=== PATIENT | female | born 1955 | race African-American/Black ===

== ENCOUNTER → 2016-07-04 | Outpatient (CLI) | payer OTHER ==
[~2016-07-04] MED LIST: COZAAR25 MG PO; FENTANYL1 EAC3 TDERMAL; GABAPENTIN100 MG ORAL; GLUCOPHAGE850 MG PO; SOMA350 MG PO; ZOLPIDEM TARTRA10 MG ORAL
--- NOTE | 2016-07-04 14:35 | Diagnostic Imaging Report ---
Indications: Back pain, right leg numbness, history of degenerative disc disease Technique: Spiral acquisitions obtained through the lumbar spine. Multiplanar reconstructions were generated. No IV contrast utilized. Total dose length product 1064 mGycm. CTDIvol(s) 32 mGy Comparison: None Findings: There is slight anterior offset of L4 on L5, presumably due to facet degeneration. The bony alignment is otherwise normal. Vertebral body heights are preserved. There is degenerative disc narrowing at L5-S1, and minimally at L4-5. The remaining disc spaces are preserved. There is bilateral sacroiliac degeneration. No acute fractures. No dislocations At T11-12, T12-L1, L1-L2, no significant disc bulge or protrusion, spinal stenosis, or neural foraminal stenosis. At L2-3, there is generalized mild circumferential annular bulge. This, in combination with ligamentum flavum hypertrophy, results in mild narrowing of the spinal canal. The neural foramina are preserved. There is mild facet degeneration on the left. At L3-4, there is generalized circumferential annular bulge. This, in combination with ligamentum flavum hypertrophy results in mild narrowing of the spinal canal at this level. The neural foramina are preserved. There is bilateral facet degeneration. At L4-5, circumferential annular bulge and the alignment abnormality as well as ligamentum flavum hypertrophy results in mild narrowing of the spinal canal. There is vacuum formation of the disc. There is bilateral facet degeneration. The neural foramina are preserved. At L5-S1, no significant disc bulge or protrusion, spinal stenosis, or neural foraminal stenosis. There is, as mentioned earlier, marked degenerative narrowing of the disc. Mild facet degeneration is evident. The neural foramina is are preserved Included extraspinal soft tissues are unremarkable. Impression: No acute bony trauma Multilevel degenerative changes, as detailed on a level by level basis above. Note spinal stenosis at L3-4 and L4-5. The CT scanner at [facility] is accredited by the [employer] and the scans are performed using protocols designed to limit radiation exposure to as low as reasonably achievable to attain images of sufficient resolution adequate for diagnostic evaluation.
== END | disposition home or self-care (01) ==
LOC: CAT 13:17
DX: M54.9 Dorsalgia, unspecified (principal); R20.0 Anesthesia of skin; M48.06 Spinal stenosis, lumbar region; M51.37 Other intervertebral disc degeneration, lumbosacral region; M53.3 Sacrococcygeal disorders, not elsewhere classified
CPT/HCPCS: 72131